=== PATIENT | male | born 1950 | race Two or more races ===

== ENCOUNTER 2020-05-02 22:01 | Inpatient (IN) | payer OTHER, MEDICAID ==
[~2020-05-02] VITALS: Ht 167.6 cm; Wt 84.0 kg
[2020-05-03 00:02] LABS: Basophils # (auto) 0 10 ^3/uL (0-0.2); Basophils % (auto) 0.2 % (0.0-2.0); Eosinophils # (auto) 0 10 ^3/uL (0-0.8); Eosinophils % (auto) 0.1 % (0.0-7.0); Hematocrit 45.7 % (41.0-53.0); Hemoglobin 15.4 g/dL (13.5-17.5); Lymphocytes # (auto) 0.7 10 ^3/uL (0.4-5.4); Mean Corpuscular Hemoglobin 31.8 pg (28.0-32.0); Mean Corpuscular Hgb Conc. 33.6 g/dL (32.0-36.0); Mean Corpuscular Volume 94.6 fL (80.0-100.0); Monocytes # (auto) 0.3 10 ^3/uL (0-1.3); Monocytes % (auto) 6.6 % (0.0-12.0); Neutrophils # (auto) 3.2 10 ^3/uL (1.6-8.6); Neutrophils % (auto) 77.1 % (37.0-80.0); Nucleated Red Blood Cells % 0.2 %; Platelet Count (auto) 113 10^3/uL (140-450); Red Blood Cells 4.83 10^6/uL (4.5-5.90); Red Cell Distribution Width 13.6 % (11.8-14.3); White Blood Cell 4.2 10^3/uL (4.4-10.8)
[2020-05-03 00:18] LABS: Albumin 2.8 g/dL (3.4-5.0); Anion Gap 5 (5-15); BUN/Creatinine Ratio 7.1; Blood Urea Nitrogen 6 mg/dL (7-18); Calcium 7.5 mg/dL (8.5-10.1); Carbon Dioxide 27 mmol/L (21-32); Chloride 103 mmol/L (98-107); GFR African American 115 mL/min; GFR Non-African American 95 mL/min; Glucose 118 mg/dL (74-106); Potassium 4.3 mmol/L (3.5-5.1); Sodium 135 mmol/L (136-145)
[2020-05-03 00:23] LABS: Alanine Aminotransferase 52 U/L (16-61); Alkaline Phosphatase 106 U/L (45-117); Aspartate Aminotransferase 79 U/L (15-37); Bilirubin, Total 0.6 mg/dL (0.2-1.0); Total Protein 6.8 g/dL (6.4-8.2)
[2020-05-03 05:23] LABS: Urine Bacteria FEW /hpf (None Seen); Urine Blood Negative /uL (Negative); Urine Specific Gravity 1.009 (1.001-1.035); Urine WBC <1 /hpf (0 - 3)
[2020-05-03] MEDS ORDERED: methylPREDNISolone SOD SUCC 125 MG/2 ML VL IV ONE (05:30)
[2020-05-03] MEDS ORDERED: DOXYCYCLINE 100MG/250ML 250 ML IV ONE (05:30)
[2020-05-03] MEDS ORDERED: SODIUM CHLORIDE 0.9% 1,000 ML IV SCH (05:43)
[2020-05-03] MEDS ORDERED: ONDANSETRON HCL 4 MG/2 ML VIAL IV PRN (05:45)
[2020-05-03] MEDS ORDERED: MORPHINE SULF INJ 2 MG/ML SYRINGE 1ML IV PRN (05:45)
[2020-05-03] MEDS ORDERED: ACETAMINOPHEN 500 MG TAB PO PRN (05:45)
[2020-05-03] MEDS ORDERED: ACETAMINOPHEN 325 MG TAB PO PRN (05:45)
[2020-05-03] MEDS: ALBUTEROL SULF HFA 90MCG INH 200DOSE IN SCH ×3 (06:00→22:08)
[2020-05-03 08:57] LABS: Basophils # (auto) 0 10 ^3/uL (0-0.2); Basophils % (auto) 0.4 % (0.0-2.0); Eosinophils # (auto) 0 10 ^3/uL (0-0.8); Hematocrit 46.7 % (41.0-53.0); Hemoglobin 15.3 g/dL (13.5-17.5); Lymphocytes # (auto) 0.4 10 ^3/uL (0.4-5.4); Lymphocytes % (auto) 13.7 % (10.0-50.0); Mean Corpuscular Hemoglobin 31.5 pg (28.0-32.0); Mean Corpuscular Hgb Conc. 32.9 g/dL (32.0-36.0); Mean Corpuscular Volume 95.7 fL (80.0-100.0); Monocytes # (auto) 0.1 10 ^3/uL (0-1.3); Monocytes % (auto) 3.7 % (0.0-12.0); Neutrophils # (auto) 2.5 10 ^3/uL (1.6-8.6); Neutrophils % (auto) 82.2 % (37.0-80.0); Platelet Count (auto) 94 10^3/uL (140-450); Red Blood Cells 4.88 10^6/uL (4.5-5.90); Red Cell Distribution Width 13.4 % (11.8-14.3)
[2020-05-03 09:20] LABS: Potassium 4.4 mmol/L (3.5-5.1)
[2020-05-03 09:26] LABS: BUN/Creatinine Ratio 10.6; Calcium 7.7 mg/dL (8.5-10.1); Magnesium 2.2 mg/dL (1.6-2.6)
[2020-05-03] MEDS: ASCORBIC ACID 1,000 MG TAB PO SCH (10:00)
[2020-05-03] MEDS: cefTRIAXone 1GM/50ML D5W 50 ML IV SCH (10:00)
[2020-05-03] MEDS: ENOXAPARIN SOD 40 MG/0.4 ML SYRINGE SC SCH (10:00)
[2020-05-03] MEDS: ZINC SULFATE 220mg CAP or TAB PO SCH (10:00)
[2020-05-03] MEDS: CHOLECALCIFEROL (VITD3) 1,000UNIT=25mCg TAB PO SCH (10:00)
[2020-05-03 10:34] VITALS: BP 145/94
[2020-05-03] MEDS: DOXYCYCLINE 100 MG TAB/CAP PO SCH ×2 (12:30→21:39)
[2020-05-03] MEDS ORDERED: FUROSEMIDE 40 MG/4 ML VIAL IV ONE (14:00)
--- NOTE | 2020-05-03 14:28 | NUR ---
MS admit from [facility] admitted to tele/MS after SBAR received. Patient oriented to JENNIFER AC, primary RN, unit, room, bed, and unit policies regarding patient care and visiting hours. Patient is alert and awake, on room air, with even and unlabored respirations and no S/S of distress/SOB or pain. Bed is in lowest position, wheels locked, side rails up x2, and call light is within reach. Pt weighed by bed scale and encouraged to call if they need something. All questions and concerns addressed, patient verbalized understanding. Will continue to monitor q1h and PRN
--- NOTE | 2020-05-03 16:01 | NUR ---
Family called for an update Patient's daughter, Kenzie, called for an update. Password obtained. Update provided.
[2020-05-03 17:00] VITALS: BP 138/77
[2020-05-03 17:43] VITALS: BP 138/77
--- NOTE | 2020-05-03 17:55 | NUR ---
Rounds Patient awake and alert. No S/S of distress/SOB or pain. Will continue to monitor changes q1hr and PRN.
[2020-05-03] MEDS: FUROSEMIDE 40 MG/4 ML VIAL IV SCH (18:00)
--- NOTE | 2020-05-03 19:50 | NUR ---
Opening Shift Note Assumed care of patient, awake and alert oriented x4. No S/S of distress/SOB or pain noted. Instructed on POC and to call for assist PRN. Bed is in lowest locked position with bed rails up x2 and call light is within reach of the patient.
[2020-05-03] MEDS: POTASSIUM CHL 10 Meq TABLET PO SCH (21:39)
[2020-05-03 22:00] VITALS: BP 142/79
[2020-05-03] MEDS ORDERED: DexAMETHasone 4 MG TAB PO SCH (22:00)
[2020-05-03] MEDS: BUDESONIDE (INHALATION) 180 MCG IH IN SCH (22:08)
[2020-05-04 05:17] VITALS: BP 138/78
[2020-05-04] MEDS: FUROSEMIDE 40 MG/4 ML VIAL IV SCH ×2 (05:30→17:40)
--- NOTE | 2020-05-04 07:28 | NUR ---
Opening Shift Note Assumed care of patient, pt sleeping quietly in bed with even and unlabored respirations. Pt is on 3 L oxymizer with No S/S of distress/SOB or pain. Bed is in lowest locked position, side rails up x2 and call light is within reach. Will continue to monitor for changes Q1hr and PRN. Addendum: 05/04/20 at 1832 by JENNIFER AC RN pt is actually on 3 L NC not Oxymizer
[2020-05-04 08:22] LABS: Basophils # (auto) 0 10 ^3/uL (0-0.2); Basophils % (auto) 0.2 % (0.0-2.0); Eosinophils # (auto) 0 10 ^3/uL (0-0.8); Hematocrit 46.3 % (41.0-53.0); Hemoglobin 15.2 g/dL (13.5-17.5); Lymphocytes # (auto) 0.4 10 ^3/uL (0.4-5.4); Lymphocytes % (auto) 4.9 % (10.0-50.0); Mean Corpuscular Hemoglobin 30.9 pg (28.0-32.0); Mean Corpuscular Hgb Conc. 32.9 g/dL (32.0-36.0); Monocytes # (auto) 0.4 10 ^3/uL (0-1.3); Monocytes % (auto) 4.7 % (0.0-12.0); Neutrophils # (auto) 6.9 10 ^3/uL (1.6-8.6); Neutrophils % (auto) 90.2 % (37.0-80.0); Platelet Count (auto) 140 10^3/uL (140-450); Red Blood Cells 4.93 10^6/uL (4.5-5.90); Red Cell Distribution Width 13.8 % (11.8-14.3); White Blood Cell 7.7 10^3/uL (4.4-10.8)
[2020-05-04 08:57] LABS: Potassium 3.8 mmol/L (3.5-5.1)
[2020-05-04 09:00] VITALS: BP 115/59
[2020-05-04 09:02] LABS: Albumin 2.6 g/dL (3.4-5.0); BUN/Creatinine Ratio 19.1; Calcium 7.9 mg/dL (8.5-10.1)
[2020-05-04 09:12] LABS: Bilirubin, Total 0.6 mg/dL (0.2-1.0); Total Protein 6.9 g/dL (6.4-8.2)
[2020-05-04] MEDS: ALBUTEROL SULF HFA 90MCG INH 200DOSE IN SCH ×3 (09:17→23:56)
[2020-05-04] MEDS: BUDESONIDE (INHALATION) 180 MCG IH IN SCH ×2 (10:00→23:56)
[2020-05-04] MEDS: POTASSIUM CHL 10 Meq TABLET PO SCH (10:00)
[2020-05-04] MEDS: CHOLECALCIFEROL (VITD3) 1,000UNIT=25mCg TAB PO SCH (11:30)
[2020-05-04] MEDS: ENOXAPARIN SOD 40 MG/0.4 ML SYRINGE SC SCH (11:30)
[2020-05-04] MEDS: DOXYCYCLINE 100 MG TAB/CAP PO SCH ×2 (11:30→22:06)
[2020-05-04] MEDS: cefTRIAXone 1GM/50ML D5W 50 ML IV SCH (11:30)
[2020-05-04] MEDS: POTASSIUM CHL 20 Meq TABLET PO SCH ×2 (11:30→22:06)
[2020-05-04] MEDS: ZINC SULFATE 220mg CAP or TAB PO SCH (11:30)
[2020-05-04] MEDS: ASCORBIC ACID 1,000 MG TAB PO SCH (11:30)
[2020-05-04] MEDS: DexAMETHasone SOD PHOS 10MG/1ML VIAL INJ IV SCH (11:30)
--- NOTE | 2020-05-04 12:20 | NUR ---
Rounds Patient awake and alert sitting up in bed. No S/S of distress/SOB or pain at this time. Will continue to monitor changes q1hr and PRN.
[2020-05-04 13:00] VITALS: BP 119/70
--- NOTE | 2020-05-04 14:20 | NUR ---
Oxygen titrated down Pt titrated down to 2 L NC as per MD orders. Pt tolerating well, o2 saturation is 93%. Patient educated to call if any symptoms of respiratory distress occur. Patient verbalized understanding. Will continue to monitor q1h and prn. Addendum: 05/04/20 at 1832 by JENNIFER AC RN wrong patient.
[2020-05-04] MEDS ORDERED: LORATADINE 10 MG TAB PO ONE (14:45)
[2020-05-04] MEDS ORDERED: LACTULOSE 20Gm/30ML SOLN PO ONE (14:45)
--- NOTE | 2020-05-04 15:30 | NUR ---
DR. BAZZI AT BEDSIDE DR. BAZZI AT BEDSIDE. PT C/O FEELING FULL, AND DIFFICULTY USING THE RESTROOM AND HAVING ALLERGIES. NEW ORDERS RECEIVED. WILL CONTINUE TO MONITOR Q1H AND PRN.
[2020-05-04 17:00] VITALS: BP 121/67
[2020-05-04] MEDS ORDERED: FUROSEMIDE 40 MG/4 ML VIAL IV SCH (18:00)
--- NOTE | 2020-05-04 18:45 | NUR ---
SPOKE WITH FAMILY MEMBER ALBINA VARMA ON THE PHONE TO PROVIDE AN UPDATE. SPOKE WITH FAMILY MEMBER TRINIDAD OVER THE PHONE. uPDATE PROVIDED AND INFORMED OF POC. FAMILY VERBALIZED UNDERSTANDING.
--- NOTE | 2020-05-04 20:20 | NUR ---
open note assumed care of pt upon entering room pt awake, alert and oriented x4 on 5L nc no distress noted or expressed. pt oriented to this nurse and updated on plan of care. pt reports he hasnt been able to have a bowel movement for a couple of days and feels as though he needs to go. this nurse to administer meds per MD and MAR. pt bed locked, low and 2x rails up. no further complaints. this nurse to round q1hr and prn. pt encouraged to call as needed.
[2020-05-04 22:00] VITALS: BP 123/71
[2020-05-04] MEDS: DOCUSATE SOD 100 MG CAP PO PRN (22:09)
[2020-05-05] MEDS: FUROSEMIDE 40 MG/4 ML VIAL IV SCH ×2 (06:21→17:31)
[2020-05-05 08:52] VITALS: BP 115/65
[2020-05-05] MEDS: BUDESONIDE (INHALATION) 180 MCG IH IN SCH ×2 (08:56→22:26)
[2020-05-05] MEDS: ALBUTEROL SULF HFA 90MCG INH 200DOSE IN SCH ×3 (08:56→22:26)
[2020-05-05] MEDS: cefTRIAXone 1GM/50ML D5W 50 ML IV SCH (10:23)
[2020-05-05] MEDS: ZINC SULFATE 220mg CAP or TAB PO SCH (10:23)
[2020-05-05] MEDS: DOXYCYCLINE 100 MG TAB/CAP PO SCH ×2 (10:23→22:26)
[2020-05-05] MEDS: DexAMETHasone SOD PHOS 10MG/1ML VIAL INJ IV SCH (10:23)
[2020-05-05] MEDS: POTASSIUM CHL 20 Meq TABLET PO SCH ×2 (10:23→22:26)
[2020-05-05] MEDS: ENOXAPARIN SOD 40 MG/0.4 ML SYRINGE SC SCH (10:24)
[2020-05-05] MEDS: ASCORBIC ACID 1,000 MG TAB PO SCH (10:24)
[2020-05-05] MEDS: CHOLECALCIFEROL (VITD3) 1,000UNIT=25mCg TAB PO SCH (10:24)
[2020-05-05 13:00] VITALS: BP 125/64
--- NOTE | 2020-05-05 14:00 | NUR ---
Dr nicolas at bedside to see patient and discuss treatment options and plan of care
[2020-05-05] MEDS ORDERED: PANTOPRAZOLE 40 MG TAB PO ONE (16:30)
[2020-05-05 17:12] VITALS: BP 126/64
--- NOTE | 2020-05-05 18:10 | NUR ---
Patient reading consent for manuel.
--- NOTE | 2020-05-05 20:00 | NUR ---
open note assumed care of pt upon entering room pt awake alert and oriented x4. pt on 6L oxymizer no distress noted or expressed. pt denies any pain. pt read over information and signed consent for remdesivir. pt updated on plan of care. pt bed locked low and 2x rails up. pt call light in reach, this nurse to round q1hr and prn. pt encouraged to call as needed.
[2020-05-05] MEDS: diphenhdrAMINE HCL 50 MG/1 ML VL IV SCH (20:16)
[2020-05-05] MEDS: methylPREDNISolone SOD SUCC 40 MG/ML VL IV SCH (20:16)
[2020-05-05] MEDS: ACETAMINOPHEN 650 mg PER 20 mL UD PO SCH (20:17)
[2020-05-05] MEDS: DOCUSATE SOD 100 MG CAP PO PRN (20:25)
[2020-05-05] MEDS: TOCILIZUMAB 400 MG in SODIUM CHL 0.9% 80 ML IV SCH (20:50)
[2020-05-05] MEDS ORDERED: REMDESIVIR 200 MG in NS 210ml LOADING DOSE ADULT IV ONE (22:00)
[2020-05-05 22:21] VITALS: BP 121/74
[2020-05-05] MEDS: PANTOPRAZOLE 40 MG TAB PO SCH (22:26)
[2020-05-06] VITALS (9 sets, daily range): BP systolic 131–140; BP diastolic 68–79
[2020-05-06 06:31] LABS: Albumin 2.4 g/dL (3.4-5.0); Calcium 7.6 mg/dL (8.5-10.1); Potassium 4.3 mmol/L (3.5-5.1)
[2020-05-06] MEDS: FUROSEMIDE 40 MG/4 ML VIAL IV SCH ×2 (06:32→17:27)
[2020-05-06 06:35] LABS: BUN/Creatinine Ratio 19.1; Bilirubin, Total 0.5 mg/dL (0.2-1.0); Total Protein 6.4 g/dL (6.4-8.2)
[2020-05-06] MEDS: ALBUTEROL SULF HFA 90MCG INH 200DOSE IN SCH ×3 (07:56→23:27)
[2020-05-06] MEDS: BUDESONIDE (INHALATION) 180 MCG IH IN SCH ×2 (07:56→23:27)
[2020-05-06] MEDS: methylPREDNISolone SOD SUCC 40 MG/ML VL IV SCH (08:52)
[2020-05-06] MEDS: diphenhdrAMINE HCL 50 MG/1 ML VL IV SCH (08:52)
[2020-05-06] MEDS: ACETAMINOPHEN 650 mg PER 20 mL UD PO SCH (08:53)
[2020-05-06] MEDS: TOCILIZUMAB 400 MG in SODIUM CHL 0.9% 80 ML IV SCH (09:21)
[2020-05-06] MEDS: PANTOPRAZOLE 40 MG TAB PO SCH ×2 (09:55→22:22)
[2020-05-06] MEDS: ASCORBIC ACID 1,000 MG TAB PO SCH (09:55)
[2020-05-06] MEDS: POTASSIUM CHL 20 Meq TABLET PO SCH ×2 (09:55→22:22)
[2020-05-06] MEDS: DOXYCYCLINE 100 MG TAB/CAP PO SCH ×2 (09:55→22:22)
[2020-05-06] MEDS: cefTRIAXone 1GM/50ML D5W 50 ML IV SCH (09:55)
[2020-05-06] MEDS: ZINC SULFATE 220mg CAP or TAB PO SCH (09:55)
[2020-05-06] MEDS: DexAMETHasone SOD PHOS 10MG/1ML VIAL INJ IV SCH (09:55)
[2020-05-06] MEDS: CHOLECALCIFEROL (VITD3) 1,000UNIT=25mCg TAB PO SCH (09:56)
[2020-05-06] MEDS: ENOXAPARIN SOD 40 MG/0.4 ML SYRINGE SC SCH (09:56)
--- NOTE | 2020-05-06 12:30 | NUR ---
DR BAZZI BEDSIDE WITH PATIENT
--- NOTE | 2020-05-06 14:28 | NUR ---
Nutrition Assessment Notes Please refer to link for full assessment notes. Est Energy needs: 0407-3642 kcals (17-20 kcal/kgBW) Est Protein needs: 91-100 gms/day (1.0-1.1 gm/kgBW) Will continue to monitor and reassess prn. Addendum: 05/06/20 at [address] Amended: Links added.
[2020-05-06 14:39] LABS: CRP High Sensitivity 1.85 mg/dL (< 0.3)
--- NOTE | 2020-05-06 16:03 | NUR ---
assessment Patient is a 70 year old male who is Guatemalan speaking. Sergo translated. Patient is Covid positive. Prior to admission patient lived home with his family and was independent. Patient has no DME and no oxygen prior to admission. Per patient he will return home with family on discharge. Patients PCP is Dr Washington. Patient is on 10L Oxymizer today. I will continue to monitor and follow up as appropriate for any oxygen needs. Patients discharge needs to be determined closer to discharge. Addendum: 05/06/20 at 1606 by Katherine LEYVA Amended: Links added.
--- NOTE | 2020-05-06 20:43 | NUR ---
SPOKE WITH PHARMACY, THEY WILL HAVE TECH BRING UP PATIENTS REMDESIIVIR FOR 2200 ADMINISTRATION.
[2020-05-06] MEDS ORDERED: REMDESIVIR 100mg in NS 230ml DAILYx4DAYS (NO VENT) IV SCH (22:00)
--- NOTE | 2020-05-06 22:48 | NUR ---
REMDESIVIR RUNNING PATIENT SHOWS NO S/S DISTRESS VITALS STABLE. WILL CONTINUE TO MONITOR
--- NOTE | 2020-05-06 23:45 | NUR ---
REMDESIVIR COMPLETE. PATIENT TOLERATED WELL, NO S/S DISTRESS NOTED. VITALS STABLE. WILL CONTINUE TO MONITOR.
[2020-05-07] MEDS: HYDROcodone-ACET 5/325MG TAB PO PRN (00:07)
[2020-05-07 05:53] VITALS: BP 138/75
[2020-05-07] MEDS: FUROSEMIDE 40 MG/4 ML VIAL IV SCH ×2 (05:57→17:35)
[2020-05-07] MEDS: ALBUTEROL SULF HFA 90MCG INH 200DOSE IN SCH ×3 (07:51→22:20)
[2020-05-07] MEDS: BUDESONIDE (INHALATION) 180 MCG IH IN SCH ×2 (07:51→22:20)
[2020-05-07 08:00] VITALS: BP 132/75
[2020-05-07 09:00] VITALS: BP 134/77
[2020-05-07 09:31] LABS: Basophils # (auto) 0 10 ^3/uL (0-0.2); Basophils % (auto) 0.2 % (0.0-2.0); Eosinophils # (auto) 0 10 ^3/uL (0-0.8); Hematocrit 48.1 % (41.0-53.0); Hemoglobin 16.3 g/dL (13.5-17.5); Lymphocytes # (auto) 0.9 10 ^3/uL (0.4-5.4); Lymphocytes % (auto) 11.2 % (10.0-50.0); Mean Corpuscular Hemoglobin 31.5 pg (28.0-32.0); Mean Corpuscular Hgb Conc. 33.9 g/dL (32.0-36.0); Mean Corpuscular Volume 93.1 fL (80.0-100.0); Monocytes # (auto) 0.4 10 ^3/uL (0-1.3); Monocytes % (auto) 4.9 % (0.0-12.0); Neutrophils # (auto) 6.7 10 ^3/uL (1.6-8.6); Neutrophils % (auto) 83.7 % (37.0-80.0); Nucleated Red Blood Cells % 0.2 %; Platelet Count (auto) 212 10^3/uL (140-450); Red Blood Cells 5.16 10^6/uL (4.5-5.90); Red Cell Distribution Width 13.8 % (11.8-14.3)
[2020-05-07 09:49] LABS: Albumin 2.8 g/dL (3.4-5.0); Calcium 7.9 mg/dL (8.5-10.1); Potassium 3.8 mmol/L (3.5-5.1)
[2020-05-07 09:54] LABS: BUN/Creatinine Ratio 26.3; Bilirubin, Total 0.7 mg/dL (0.2-1.0)
[2020-05-07] MEDS: DexAMETHasone SOD PHOS 10MG/1ML VIAL INJ IV SCH (09:54)
[2020-05-07] MEDS: ZINC SULFATE 220mg CAP or TAB PO SCH (09:54)
[2020-05-07] MEDS: POTASSIUM CHL 20 Meq TABLET PO SCH ×2 (09:54→22:49)
[2020-05-07] MEDS: cefTRIAXone 1GM/50ML D5W 50 ML IV SCH (09:54)
[2020-05-07] MEDS: PANTOPRAZOLE 40 MG TAB PO SCH ×2 (09:55→22:49)
[2020-05-07] MEDS: ASCORBIC ACID 1,000 MG TAB PO SCH (09:55)
[2020-05-07] MEDS: CHOLECALCIFEROL (VITD3) 1,000UNIT=25mCg TAB PO SCH (09:55)
[2020-05-07] MEDS: DOXYCYCLINE 100 MG TAB/CAP PO SCH ×2 (09:55→22:49)
[2020-05-07] MEDS: ENOXAPARIN SOD 40 MG/0.4 ML SYRINGE SC SCH (09:56)
[2020-05-07 13:00] VITALS: BP 131/69
[2020-05-07 17:00] VITALS: BP 119/98
[2020-05-07] MEDS: REMDESIVIR 100mg in NS 230ml DAILYx4DAYS (NO VENT) IV SCH (20:45)
--- NOTE | 2020-05-07 20:45 | NUR ---
Ordered Remdesivir started at this time. Temperature 97.8 degrees Farenheit orally, 56 HR, 16 RR, 125/86 mm Hg, 90% pulse oxygenation. No s/s of distress. Will continue to monitor.
--- NOTE | 2020-05-07 21:00 | NUR ---
Ordered Remdesivir continuing to infuse. Temperature 98.0 degrees Fahrenheit orally, 57 HR, 20 RR, 121/77 mm Hg, 91% pulse oxygenation. No s/s of distress. Will continue to monitor.
--- NOTE | 2020-05-07 21:45 | NUR ---
Ordered Remdesivir finished infusing at this time. Temperature 97.9 degrees Fahrenheit orally, 55 HR, 18 RR, 121/77 mm Hg, 94% pulse oxygenation. No s/s of distress. Will continue to monitor.
[2020-05-07 22:00] VITALS: BP 121/77
[2020-05-08 05:00] VITALS: BP 120/76
[2020-05-08] MEDS: FUROSEMIDE 40 MG/4 ML VIAL IV SCH ×2 (06:24→18:27)
--- NOTE | 2020-05-08 06:42 | NUR ---
Closing Note Patient lying in bed, awake and alert. Bed in lowest locked position, call light within reach. Pulse oxygenation reassessed, at 91% on 12 liters via Oxymizer. No s/s of distress. Will endorse care to dayshift RN.
[2020-05-08] MEDS: BUDESONIDE (INHALATION) 180 MCG IH IN SCH ×2 (06:56→20:01)
[2020-05-08] MEDS: ALBUTEROL SULF HFA 90MCG INH 200DOSE IN SCH ×3 (06:56→20:01)
--- NOTE | 2020-05-08 07:40 | NUR ---
Opening Note Received report from weight shifter RN. Patient is resting in bed, easy to wake by calling name. Patient is on 15L Oxymizer. Patient denies pain at this time. Reviewed plan of care with patient, patient verbalized understanding. Bed in low and locked position, call light within reach. Will continue to monitor Q1 hour and PRN.
[2020-05-08 09:17] VITALS: BP 112/68
[2020-05-08] MEDS: cefTRIAXone 1GM/50ML D5W 50 ML IV SCH (09:25)
[2020-05-08] MEDS: POTASSIUM CHL 20 Meq TABLET PO SCH ×2 (09:26→22:45)
[2020-05-08] MEDS: DexAMETHasone SOD PHOS 10MG/1ML VIAL INJ IV SCH (09:26)
[2020-05-08] MEDS: DOXYCYCLINE 100 MG TAB/CAP PO SCH (09:26)
[2020-05-08] MEDS: ASCORBIC ACID 1,000 MG TAB PO SCH (09:26)
[2020-05-08] MEDS: ENOXAPARIN SOD 40 MG/0.4 ML SYRINGE SC SCH (09:26)
[2020-05-08] MEDS: ZINC SULFATE 220mg CAP or TAB PO SCH (09:26)
[2020-05-08] MEDS: PANTOPRAZOLE 40 MG TAB PO SCH ×2 (09:26→22:46)
[2020-05-08] MEDS: CHOLECALCIFEROL (VITD3) 1,000UNIT=25mCg TAB PO SCH (09:27)
[2020-05-08 13:00] VITALS: BP 148/70
--- NOTE | 2020-05-08 13:05 | NUR ---
Ultra sound tech at bedside
[2020-05-08 17:12] VITALS: BP 121/76
[2020-05-08] MEDS: DOCUSATE SOD 100 MG CAP PO PRN (18:27)
--- NOTE | 2020-05-08 19:07 | NUR ---
Closing Note Report given to restaurant shift leader RN. No signs or symptoms of distress noted at this time.
[2020-05-08] MEDS: REMDESIVIR 100mg in NS 230ml DAILYx4DAYS (NO VENT) IV SCH (20:30)
--- NOTE | 2020-05-08 20:30 | NUR ---
Ordered Remdesivir started at this time. Temperature 98.3 degrees Fahrenheit orally, 61 HR, 18 RR, 124/76 mm Hg, 91% pulse oxygenation. No s/s of distress. Will continue to monitor.
--- NOTE | 2020-05-08 20:45 | NUR ---
Ordered Remdesivir continuing to infuse. Temperature 97.7 degrees Fahrenheit orally, 59 HR, 18 RR, 124/76 mm Hg, 93% pulse oxygenation. No s/s of distress. Will continue to monitor.
--- NOTE | 2020-05-08 21:30 | NUR ---
Ordered Remdesivir finished infusing at this time. Temperature 97.6 degrees Fahrenheit orally, 61 HR, 19RR, 116/72 mm Hg, 95% pulse oxygenation. No s/s of distress. Will continue to monitor.
[2020-05-08 22:00] VITALS: BP_SYST 116; BP_SYST 124; BP_DIAS 72; BP_DIAS 76
[2020-05-09 05:00] VITALS: BP 126/76
[2020-05-09] MEDS: FUROSEMIDE 40 MG/4 ML VIAL IV SCH (06:06)
[2020-05-09 06:13] LABS: Potassium 4.9 mmol/L (3.5-5.1)
[2020-05-09 06:21] LABS: Albumin 2.8 g/dL (3.4-5.0); BUN/Creatinine Ratio 23.5; Bilirubin, Total 0.8 mg/dL (0.2-1.0); Calcium 8.1 mg/dL (8.5-10.1); Total Protein 7.1 g/dL (6.4-8.2)
--- NOTE | 2020-05-09 06:47 | NUR ---
Closing Note Patient lying in bed, awake and alert. Bed in lowest locked position, side rails up x2, call light within reach. No s/s of distress. Will endorse care to dayshift RN.
[2020-05-09] MEDS: ALBUTEROL SULF HFA 90MCG INH 200DOSE IN SCH ×3 (07:13→22:14)
[2020-05-09] MEDS: BUDESONIDE (INHALATION) 180 MCG IH IN SCH ×2 (07:13→22:15)
[2020-05-09] MEDS ORDERED: SODIUM CHLORIDE 0.9% 500 ML IV ONE (07:45)
[2020-05-09] MEDS ORDERED: SODIUM CHLORIDE 0.9% 1,000 ML IV ONE (07:45)
[2020-05-09 08:47] VITALS: BP 129/75
[2020-05-09] MEDS ORDERED: DIPH50CA31 OR (09:42)
[2020-05-09] MEDS: CHOLECALCIFEROL (VITD3) 1,000UNIT=25mCg TAB PO SCH (11:29)
[2020-05-09] MEDS: ZINC SULFATE 220mg CAP or TAB PO SCH (11:29)
[2020-05-09] MEDS: DexAMETHasone SOD PHOS 10MG/1ML VIAL INJ IV SCH (11:29)
[2020-05-09] MEDS: PANTOPRAZOLE 40 MG TAB PO SCH ×2 (11:29→21:45)
[2020-05-09] MEDS: cefTRIAXone 1GM/50ML D5W 50 ML IV SCH (11:29)
[2020-05-09] MEDS: ASCORBIC ACID 1,000 MG TAB PO SCH (11:29)
[2020-05-09] MEDS: ENOXAPARIN SOD 40 MG/0.4 ML SYRINGE SC SCH (11:30)
--- NOTE | 2020-05-09 12:20 | NUR ---
Nutrition Followup Note Wt 91.1 kg Pt`s COVID +ve unable to talk to pt as in isolation. pt with no distress noted currently on regular diet with adequate PO fo 100% x 2 per RN doc Est Energy needs: 8703-4296 kcals (17-20 kcal/kgBW). Est Protein needs: 91-100 gms/day (1.0-1.1 gm/kgBW). Will continue to monitor and reassess prn. Labs: BUN 321 H, CREAT 1.32 H GLU 124 H BM: pt with 1 BM today per RN note Skin: BS 20 low risk, full details in landcare facilitator note PES: 1) Obesity aeb 141% IBW and BMI of 32.4 kg/m2 r/t energy intake in excess of energy needs 2) Altered nutrition related lab values aeb hyperglycemia, hypocalcemia, smod hypoalbuminemia r/t current medical condition Comments: Will continue to monitor PO intake, skin status, pertinent labs and weight trends. Will f/u in 3-5 days. Rec: 1) Continue to closely monitor pt PO intake to meet at least 75% of meals. 2) Continue current plan of care
[2020-05-09 12:59] VITALS: BP 116/76
[2020-05-09] MEDS: ALUM & MAG HYDROX-SIMETH LIQ(MAALOX) 30 ML PO PRN ×2 (14:45→23:42)
[2020-05-09 16:17] VITALS: BP 116/76
[2020-05-09 17:15] VITALS: BP 117/73
[2020-05-09] MEDS ORDERED: diphenhdrAMINE HCL 25 MG CAP PO PRN (17:45)
[2020-05-09] MEDS: REMDESIVIR 100mg in NS 230ml DAILYx4DAYS (NO VENT) IV SCH (21:45)
--- NOTE | 2020-05-09 21:45 | NUR ---
Ordered Remdesivir started at this time. Temperature 98.0 degrees Fahrenheit orally, 58 HR, 18 RR, 135/84 mm Hg, 90% pulse oxygenation. No s/s of distress. Will continue to monitor.
--- NOTE | 2020-05-09 22:00 | NUR ---
Ordered Remdesivir continuing to infuse. Temperature 98.0 degrees Fahrenheit orally, 63 HR, 17 RR, 130/79 mm Hg, 95% pulse oxygenation. No s/s of distress. Will continue to monitor.
--- NOTE | 2020-05-09 22:22 | NUR ---
Patient decreased to 12 liters via Oxymizer by Respiratory Therapist. Patient's oxygen saturation 86% - 92% while speaking, placed on 15 liters via non rebreather mask at this time. Oxygen saturation maintaining 90% - 94%. Respirations even and unlabored, no tachypnea noted. No s/s of distress. Will continue to monitor.
--- NOTE | 2020-05-09 22:45 | NUR ---
Ordered Remdesivir finished infusing at this time. Temperature 98.7 degrees Fahrenheit orally, 64 HR, 18 RR, 125/73 mm Hg, 90% pulse oxygenation. No s/s of distress. Will continue to monitor.
[2020-05-10 05:00] VITALS: BP_SYST 128; BP_SYST 132; BP_DIAS 72; BP_DIAS 87
[2020-05-10 06:28] LABS: Basophils # (auto) 0 10 ^3/uL (0-0.2); Eosinophils # (auto) 0.2 10 ^3/uL (0-0.8); Nucleated Red Blood Cells % 0.2 %
[2020-05-10] MEDS: ALBUTEROL SULF HFA 90MCG INH 200DOSE IN SCH ×3 (06:30→21:53)
[2020-05-10 06:31] LABS: Basophils % (auto) 0.1 % (0.0-2.0); Eosinophils % (auto) 1.8 % (0.0-7.0); Hematocrit 52.8 % (41.0-53.0); Hemoglobin 17.8 g/dL (13.5-17.5); Lymphocytes # (auto) 0.8 10 ^3/uL (0.4-5.4); Lymphocytes % (auto) 8.6 % (10.0-50.0); Mean Corpuscular Hemoglobin 31.5 pg (28.0-32.0); Mean Corpuscular Hgb Conc. 33.7 g/dL (32.0-36.0); Mean Corpuscular Volume 93.6 fL (80.0-100.0); Monocytes # (auto) 0.3 10 ^3/uL (0-1.3); Monocytes % (auto) 3.1 % (0.0-12.0); Neutrophils # (auto) 8.2 10 ^3/uL (1.6-8.6); Neutrophils % (auto) 86.4 % (37.0-80.0); Platelet Count (auto) 252 10^3/uL (140-450); Red Blood Cells 5.64 10^6/uL (4.5-5.90); Red Cell Distribution Width 13.6 % (11.8-14.3); White Blood Cell 9.5 10^3/uL (4.4-10.8)
[2020-05-10] MEDS: BUDESONIDE (INHALATION) 180 MCG IH IN SCH ×2 (06:31→21:55)
[2020-05-10 06:45] LABS: Albumin 2.7 g/dL (3.4-5.0); Potassium 4.6 mmol/L (3.5-5.1)
[2020-05-10 06:48] LABS: BUN/Creatinine Ratio 27.3; Bilirubin, Total 0.8 mg/dL (0.2-1.0); Total Protein 6.7 g/dL (6.4-8.2)
--- NOTE | 2020-05-10 07:20 | NUR ---
Opening Shift Note Received report and assumed care of patient. Patient is awake and alert. No signs or symptoms of distress noted, patient currently denies pain. Instructed patient on plan of care and to call for assistance as needed. Will continue to monitor. Addendum: 05/11/20 at 0123 by ANDRE SOOD RN THIS NOTE IS AT THIS 19:20 05/10/20
[2020-05-10 08:00] VITALS: BP 118/83
[2020-05-10 09:00] VITALS: BP 118/83
[2020-05-10] MEDS: cefTRIAXone 1GM/50ML D5W 50 ML IV SCH (10:04)
[2020-05-10] MEDS: ZINC SULFATE 220mg CAP or TAB PO SCH (10:04)
[2020-05-10] MEDS: DexAMETHasone SOD PHOS 10MG/1ML VIAL INJ IV SCH (10:04)
[2020-05-10] MEDS: CHOLECALCIFEROL (VITD3) 1,000UNIT=25mCg TAB PO SCH (10:05)
[2020-05-10] MEDS: ASCORBIC ACID 1,000 MG TAB PO SCH (10:05)
[2020-05-10] MEDS: PANTOPRAZOLE 40 MG TAB PO SCH ×2 (10:05→22:11)
[2020-05-10] MEDS: ENOXAPARIN SOD 40 MG/0.4 ML SYRINGE SC SCH (10:05)
[2020-05-10] MEDS ORDERED: FUROSEMIDE 40 MG/4 ML VIAL IV ONE (10:45)
[2020-05-10 12:00] VITALS: BP 128/79
--- NOTE | 2020-05-10 16:30 | NUR ---
DR BAZZI ON UNIT
[2020-05-10 17:00] VITALS: BP 134/85
[2020-05-10 22:00] VITALS: BP 127/78
--- NOTE | 2020-05-10 22:00 | NUR ---
RT NOTE PT WAS SEEN BY RT FOR MDI TX. PT TOLERATES WELL VIA SPACER. PT RINSED MOUTH WITH WATER POST MDI TX. HR 68, RR16, BS CLEAR/DIMINISHED, POX 89% ON 15L NONREBREATHER. CONT ORDERED Addendum: 05/10/20 at 2241 by Marybel Vazquez RT Amended: Links added.
[2020-05-11 05:00] VITALS: BP 128/83
[2020-05-11] MEDS: ALBUTEROL SULF HFA 90MCG INH 200DOSE IN SCH ×3 (06:24→21:31)
[2020-05-11] MEDS: BUDESONIDE (INHALATION) 180 MCG IH IN SCH ×2 (06:24→21:31)
[2020-05-11 08:00] VITALS: BP 115/84
[2020-05-11 09:00] VITALS: BP 115/84
[2020-05-11] MEDS: DexAMETHasone SOD PHOS 10MG/1ML VIAL INJ IV SCH (09:45)
[2020-05-11] MEDS: FUROSEMIDE 40 MG/4 ML VIAL IV SCH (09:46)
[2020-05-11] MEDS: ZINC SULFATE 220mg CAP or TAB PO SCH (09:46)
[2020-05-11] MEDS: PANTOPRAZOLE 40 MG TAB PO SCH ×2 (09:46→21:42)
[2020-05-11] MEDS: CHOLECALCIFEROL (VITD3) 1,000UNIT=25mCg TAB PO SCH (09:46)
[2020-05-11] MEDS: ASCORBIC ACID 1,000 MG TAB PO SCH (09:46)
[2020-05-11] MEDS: ENOXAPARIN SOD 40 MG/0.4 ML SYRINGE SC SCH (09:47)
--- NOTE | 2020-05-11 11:45 | NUR ---
Dr Cleaning bedside with patient. Informed DrMatt of patients request for allergy medication. Dr Cleaning will place order
[2020-05-11 12:00] VITALS: BP 120/97
[2020-05-11] MEDS ORDERED: FLUTICASONE PROP NASAL SPR 0.05 % (50MCG) 16GM EACHNOSTRI ONE (14:00)
[2020-05-11] MEDS ORDERED: LORATADINE 10 MG TAB PO ONE (14:00)
[2020-05-11] MEDS: DOCUSATE SOD 100 MG CAP PO PRN (14:56)
[2020-05-11 16:48] VITALS: BP 123/75
--- NOTE | 2020-05-11 19:40 | NUR ---
Opening Shift Note Assumed care of patient, awake and alert. No S/S of distress/SOB or pain. Instructed on POC and to call for assist PRN. Bed in lowest locked position, call light within reach, side rails up x2. Will continue to monitor for changes Q1hr and PRN.
[2020-05-11] MEDS: FLUTICASONE PROP NASAL SPR 0.05 % (50MCG) 16GM EACHNOSTRI SCH (21:42)
[2020-05-11 21:50] VITALS: BP 121/86
[2020-05-12 05:23] VITALS: BP 120/87
[2020-05-12] MEDS: ALBUTEROL SULF HFA 90MCG INH 200DOSE IN SCH ×3 (06:48→22:18)
[2020-05-12] MEDS: BUDESONIDE (INHALATION) 180 MCG IH IN SCH ×2 (06:49→22:18)
[2020-05-12 09:42] VITALS: BP 140/83
[2020-05-12] MEDS: ZINC SULFATE 220mg CAP or TAB PO SCH (10:18)
[2020-05-12] MEDS: PANTOPRAZOLE 40 MG TAB PO SCH ×2 (10:18→21:53)
[2020-05-12] MEDS: ASCORBIC ACID 1,000 MG TAB PO SCH (10:18)
[2020-05-12] MEDS: LORATADINE 10 MG TAB PO SCH (10:18)
[2020-05-12] MEDS: CHOLECALCIFEROL (VITD3) 1,000UNIT=25mCg TAB PO SCH (10:18)
[2020-05-12] MEDS: ENOXAPARIN SOD 40 MG/0.4 ML SYRINGE SC SCH ×2 (10:19→21:53)
[2020-05-12] MEDS: FUROSEMIDE 40 MG/4 ML VIAL IV SCH (10:19)
[2020-05-12] MEDS: FLUTICASONE PROP NASAL SPR 0.05 % (50MCG) 16GM EACHNOSTRI SCH ×2 (10:20→21:53)
[2020-05-12 11:25] LABS: Eosinophils # (auto) 0.2 10 ^3/uL (0-0.8); Lymphocytes # (auto) 1.1 10 ^3/uL (0.4-5.4); Lymphocytes % (auto) 6.8 % (10.0-50.0)
[2020-05-12 11:27] LABS: Basophils # (auto) 0.1 10 ^3/uL (0-0.2); Basophils % (auto) 0.5 % (0.0-2.0); Eosinophils % (auto) 1.3 % (0.0-7.0); Hematocrit 53.4 % (41.0-53.0); Hemoglobin 18.1 g/dL (13.5-17.5); Mean Corpuscular Hemoglobin 31.5 pg (28.0-32.0); Mean Corpuscular Hgb Conc. 33.9 g/dL (32.0-36.0); Monocytes # (auto) 0.5 10 ^3/uL (0-1.3); Monocytes % (auto) 3.4 % (0.0-12.0); Neutrophils # (auto) 13.6 10 ^3/uL (1.6-8.6); Nucleated Red Blood Cells % 0.3 %; Platelet Count (auto) 226 10^3/uL (140-450); Red Blood Cells 5.74 10^6/uL (4.5-5.90); Red Cell Distribution Width 13.7 % (11.8-14.3); White Blood Cell 15.5 10^3/uL (4.4-10.8)
[2020-05-12 11:43] LABS: Albumin 2.9 g/dL (3.4-5.0); Calcium 8.5 mg/dL (8.5-10.1); Potassium 3.9 mmol/L (3.5-5.1)
[2020-05-12 11:46] LABS: BUN/Creatinine Ratio 28.2; Bilirubin, Total 0.9 mg/dL (0.2-1.0)
[2020-05-12 11:58] VITALS: BP 140/83
[2020-05-12 12:42] VITALS: BP 128/86
--- NOTE | 2020-05-12 14:17 | NUR ---
Nutrition Followup Note Wt 84.0 kg Unable to speak to pt d/t pt`s COVID +. Pt is currently on regular diet with fair PO intake aeb ave 67% x 3 per RN doc. Pt with no distress per RN doc. Will continue to monitor PO status, skin status, pertinent labs and weight trends. Will f/u in 3-5 days. Est Energy needs: 9394-4649 kcals (17-20 kcal/kgBW). Est Protein needs: 91-100 gms/day (1.0-1.1 gm/kgBW). Will continue to monitor and reassess prn. Labs: BUN 30 H, GLU 113 H, Ca 8.0 L. Alb 2.7 L BM: pt with 1 BM on 05/09 per RN note Skin: BS 20 low risk, full details in career technology teacher note PES: 1) Obesity aeb 141% IBW and BMI of 32.4 kg/m2 r/t energy intake in excess of energy needs 2) Altered nutrition related lab values aeb hyperglycemia, hypocalcemia, smod hypoalbuminemia r/t current medical condition Comments: Will continue to monitor PO intake, skin status, pertinent labs and weight trends. Will f/u in 3-5 days. Rec: 1) Continue to closely monitor pt PO intake to meet at least 75% of meals. 2) Continue current plan of care
[2020-05-12] MEDS ORDERED: DexAMETHasone 4 MG TAB PO ONE (15:15)
[2020-05-12] MEDS ORDERED: POTASSIUM CHL 10 Meq TABLET PO ONE (15:30)
[2020-05-12 16:59] VITALS: BP 118/72
[2020-05-12] MEDS: DOCUSATE SOD 100 MG CAP PO PRN (21:54)
[2020-05-12 22:00] VITALS: BP 117/71
[2020-05-13 05:00] VITALS: BP 109/68
[2020-05-13] MEDS: ALBUTEROL SULF HFA 90MCG INH 200DOSE IN SCH ×3 (07:37→23:51)
[2020-05-13] MEDS: BUDESONIDE (INHALATION) 180 MCG IH IN SCH ×2 (07:37→23:51)
[2020-05-13 09:27] VITALS: BP 132/80
[2020-05-13] MEDS ORDERED: DexAMETHasone 4 MG TAB PO SCH (10:00)
[2020-05-13] MEDS: CHOLECALCIFEROL (VITD3) 1,000UNIT=25mCg TAB PO SCH (10:07)
[2020-05-13] MEDS: ASCORBIC ACID 1,000 MG TAB PO SCH (10:07)
[2020-05-13] MEDS: FUROSEMIDE 20 MG TAB PO SCH (10:08)
[2020-05-13] MEDS: PANTOPRAZOLE 40 MG TAB PO SCH ×2 (10:08→23:38)
[2020-05-13] MEDS: POTASSIUM CHL 10 Meq TABLET PO SCH (10:08)
[2020-05-13] MEDS: LORATADINE 10 MG TAB PO SCH (10:09)
[2020-05-13] MEDS: ENOXAPARIN SOD 40 MG/0.4 ML SYRINGE SC SCH ×2 (10:10→23:39)
[2020-05-13] MEDS: FLUTICASONE PROP NASAL SPR 0.05 % (50MCG) 16GM EACHNOSTRI SCH ×2 (10:10→23:38)
[2020-05-13 12:27] VITALS: BP 122/78
[2020-05-13 17:00] VITALS: BP 108/68
[2020-05-13] MEDS: DOCUSATE SOD 100 MG CAP PO PRN (20:54)
[2020-05-13] MEDS: HYDROcodone-ACET 5/325MG TAB PO PRN (20:55)
[2020-05-13 22:00] VITALS: BP 97/69
[2020-05-14 04:49] VITALS: BP 111/72
[2020-05-14] MEDS: ALBUTEROL SULF HFA 90MCG INH 200DOSE IN SCH ×2 (06:29→14:17)
[2020-05-14] MEDS: BUDESONIDE (INHALATION) 180 MCG IH IN SCH (06:31)
[2020-05-14 06:48] LABS: Basophils # (auto) 0 10 ^3/uL (0-0.2); Basophils % (auto) 0.2 % (0.0-2.0); Eosinophils # (auto) 0.1 10 ^3/uL (0-0.8); Eosinophils % (auto) 1.5 % (0.0-7.0); Hemoglobin 15.8 g/dL (13.5-17.5); Lymphocytes # (auto) 1.1 10 ^3/uL (0.4-5.4); Lymphocytes % (auto) 11.2 % (10.0-50.0); Mean Corpuscular Hemoglobin 31.3 pg (28.0-32.0); Mean Corpuscular Hgb Conc. 32.9 g/dL (32.0-36.0); Monocytes # (auto) 0.5 10 ^3/uL (0-1.3); Monocytes % (auto) 5.5 % (0.0-12.0); Neutrophils # (auto) 7.9 10 ^3/uL (1.6-8.6); Neutrophils % (auto) 81.6 % (37.0-80.0); Nucleated Red Blood Cells % 0.1 %; Platelet Count (auto) 138 10^3/uL (140-450); Red Blood Cells 5.05 10^6/uL (4.5-5.90); Red Cell Distribution Width 13.6 % (11.8-14.3); White Blood Cell 9.7 10^3/uL (4.4-10.8)
[2020-05-14 07:04] LABS: Albumin 2.5 g/dL (3.4-5.0); Calcium 7.8 mg/dL (8.5-10.1); Potassium 4.2 mmol/L (3.5-5.1)
[2020-05-14 07:07] LABS: BUN/Creatinine Ratio 28.1; Total Protein 5.8 g/dL (6.4-8.2)
[2020-05-14 08:00] VITALS: BP 111/68
[2020-05-14] MEDS: ASCORBIC ACID 1,000 MG TAB PO SCH (10:51)
[2020-05-14] MEDS: ENOXAPARIN SOD 40 MG/0.4 ML SYRINGE SC SCH (10:51)
[2020-05-14] MEDS: FLUTICASONE PROP NASAL SPR 0.05 % (50MCG) 16GM EACHNOSTRI SCH (10:52)
[2020-05-14] MEDS: POTASSIUM CHL 10 Meq TABLET PO SCH (10:52)
[2020-05-14] MEDS: PANTOPRAZOLE 40 MG TAB PO SCH (10:52)
[2020-05-14] MEDS: LORATADINE 10 MG TAB PO SCH (10:52)
[2020-05-14] MEDS: FUROSEMIDE 20 MG TAB PO SCH (10:52)
[2020-05-14] MEDS: CHOLECALCIFEROL (VITD3) 1,000UNIT=25mCg TAB PO SCH (10:52)
[2020-05-14] MEDS ORDERED: LIDOCAINE VISCOUS 2% 15ML UD MT ONE (11:15)
[2020-05-14] MEDS ORDERED: THROAT LOZENGES(CEPASTAT) MT PRN (11:15)
[2020-05-14] MEDS ORDERED: THROAT LOZENGES(CEPASTAT) MT ONE (11:15)
[2020-05-14] MEDS ORDERED: LIDOCAINE VISCOUS 2% 15ML UD MT PRN (11:15)
[2020-05-14 12:00] VITALS: BP 111/73
[2020-05-14] MEDS ORDERED: POTA-167 PO (14:00)
[2020-05-14] MEDS ORDERED: CHOL1000 PO (14:00)
[2020-05-14] MEDS ORDERED: FLUT50SP EACHNOSTRI (14:00)
[2020-05-14] MEDS ORDERED: AMOX500T86 PO (14:00)
[2020-05-14] MEDS ORDERED: ASCO10003 PO (14:00)
[2020-05-14] MEDS ORDERED: ALBUAER3 IN (14:00)
[2020-05-14] MEDS ORDERED: LORA-154 PO (14:00)
[2020-05-14] MEDS ORDERED: FUR20T PO (14:00)
[2020-05-14] MEDS ORDERED: ASPI81CH43 PO (14:00)
[2020-05-14] MEDS ORDERED: PANT40T PO (14:00)
--- NOTE | 2020-05-14 14:01 | NUR ---
D/C Planning Regarding social service consult for home oxygen at 6 l/min. Faxed clinical information to [facility] [place] and [facility]. Per Flori with [facility] [place] [phone] patient portable oxygen will be deliver to the front lobby between 15:00-17:30 and concentrate to home. Obtain authorization from [facility] [id number].
--- NOTE | 2020-05-14 17:00 | NUR ---
Patient home oxygen delivered to unit.
--- NOTE | 2020-05-14 17:40 | NUR ---
Discharge instructions given as ordered. Encourage to follow up with PMD as instructed. All questions and concerns addressed. Patient verbalized understanding. Medication reconciliation form completed and copy given to patient. IV removed with catheter intact, pressure dressing applied. Covid education given.Patient taken to vehicle via wheelchair with all personal belongings, home oxygen and prescribed medications in hands, accompanied by staff. Family member waiting in front lobby for transportation home. No distress noted at time of departure.
== END 2020-05-14 17:40 | disposition home or self-care (01) | DRG 871 ==
LOC: ER 22:01 → OVERFLOW 22:02 → EAST 05-03 14:29
PROVIDERS: ADMIT Hospitalist; ATTEND Internal Medicine
DX: A41.89 Other specified sepsis (principal); U07.1 COVID-19; J96.01 Acute respiratory failure with hypoxia; J12.89 Other viral pneumonia; E44.0 Moderate protein-calorie malnutrition; J01.00 Acute maxillary sinusitis, unspecified; I49.3 Ventricular premature depolarization; K29.70 Gastritis, unspecified, without bleeding; K21.9 Gastro-esophageal reflux disease without esophagitis; E78.5 Hyperlipidemia, unspecified; K76.0 Fatty (change of) liver, not elsewhere classified; R73.9 Hyperglycemia, unspecified; Z68.32 Body mass index [BMI] 32.0-32.9, adult
CPT/HCPCS: 36415; 71045; 76705; 80048; 80053; 80061; 81001; 82728; 83036; 83615; 83735; 83880; 84484; 85025; 86141; 87070; 87880; 93005; 94640; 96361; 96365; 96367; 96372; 96375; G0378; J0696; J1100; J2405

== ENCOUNTER 2020-05-26 12:52 | Inpatient (IN) | payer OTHER, MEDICAID ==
[~2020-05-26] VITALS: Ht 170.2 cm; Wt 60.0 kg
[~2020-05-26 12:52] MED LIST: ALBUAER3 IN; AMOX500T86 PO; ASCO10003 PO; ASPI81CH43 PO; CHOL1000 PO; DIPH50CA31 OR; FLUT50SP EACHNOSTRI; FUR20T PO; LORA-154 PO; PANT40T PO; POTA-167 PO
[2020-05-26] MEDS ORDERED: SODIUM CHLORIDE 0.9% 1,000 ML IV ONE (13:00)
[2020-05-26] MEDS ORDERED: ASCORBIC ACID 500 MG TAB PO ONE (13:45)
[2020-05-26] MEDS ORDERED: cefTRIAXone 1GM/50ML D5W 50 ML IV ONE (13:45)
[2020-05-26] MEDS ORDERED: DOXYCYCLINE 100MG/250ML 250 ML IV ONE (13:45)
[2020-05-26] MEDS ORDERED: ZINC SULFATE 220mg CAP or TAB PO ONE (13:45)
[2020-05-26 14:28] LABS: Basophils # (auto) 0 10 ^3/uL (0-0.2); Basophils % (auto) 0.6 % (0.0-2.0); Eosinophils # (auto) 0.4 10 ^3/uL (0-0.8); Eosinophils % (auto) 5.5 % (0.0-7.0); Hematocrit 44.5 % (41.0-53.0); Hemoglobin 14.9 g/dL (13.5-17.5); Lymphocytes # (auto) 1.1 10 ^3/uL (0.4-5.4); Lymphocytes % (auto) 13.5 % (10.0-50.0); Mean Corpuscular Hemoglobin 31.8 pg (28.0-32.0); Mean Corpuscular Hgb Conc. 33.5 g/dL (32.0-36.0); Mean Corpuscular Volume 94.9 fL (80.0-100.0); Monocytes # (auto) 0.8 10 ^3/uL (0-1.3); Monocytes % (auto) 9.8 % (0.0-12.0); Neutrophils # (auto) 5.6 10 ^3/uL (1.6-8.6); Neutrophils % (auto) 70.6 % (37.0-80.0); Nucleated Red Blood Cells % 0.1 %; Platelet Count (auto) 208 10^3/uL (140-450); Red Blood Cells 4.69 10^6/uL (4.5-5.90); Red Cell Distribution Width 14.7 % (11.8-14.3); White Blood Cell 7.9 10^3/uL (4.4-10.8)
[2020-05-26 14:43] LABS: Albumin 2.7 g/dL (3.4-5.0); Anion Gap 5 (5-15); Aspartate Aminotransferase 51 U/L (15-37); BUN/Creatinine Ratio 9.5; Blood Urea Nitrogen 7 mg/dL (7-18); Calcium 8.2 mg/dL (8.5-10.1); Carbon Dioxide 28 mmol/L (21-32); Chloride 105 mmol/L (98-107); GFR African American 135 mL/min; GFR Non-African American 112 mL/min; Glucose 101 mg/dL (74-106); Magnesium 2.2 mg/dL (1.6-2.6); Potassium 4.1 mmol/L (3.5-5.1); Sodium 138 mmol/L (136-145)
[2020-05-26 14:47] LABS: Alanine Aminotransferase 59 U/L (16-61); Alkaline Phosphatase 182 U/L (45-117); Bilirubin, Total 0.5 mg/dL (0.2-1.0); Total Protein 7.1 g/dL (6.4-8.2)
[2020-05-26] MEDS ORDERED: MORPHINE SULF INJ 2 MG/ML SYRINGE 1ML IV PRN (16:00)
[2020-05-26] MEDS ORDERED: AZITHROMYCIN 500MG/ 250ML 250 ML IV ONE (16:00)
[2020-05-26] MEDS ORDERED: NITROGLYCERIN 0.4 MG SL TAB SL PRN (16:00)
[2020-05-26] MEDS ORDERED: FUROSEMIDE 40 MG/4 ML VIAL IV ONE (16:00)
[2020-05-26 17:38] LABS: Urine Bacteria NONE SEEN /hpf (None Seen); Urine Blood Negative /uL (Negative); Urine Specific Gravity 1.005 (1.001-1.035); Urine WBC <1 /hpf (0 - 3)
[2020-05-26 19:33] VITALS: BP 139/81
--- NOTE | 2020-05-26 19:33 | NUR ---
Opening Shift Note Assumed care of patient from day shift rn , awake and alert. No S/S of distress/SOB or pain. Instructed on POC and to call for assist PRN, will continue to monitor for changes Q1hr and PRN. bed in low positon and call light within reach
[2020-05-26] MEDS: FUROSEMIDE 40 MG/4 ML VIAL IV SCH (20:14)
[2020-05-26 22:00] VITALS: BP 123/67
[2020-05-27] MEDS ORDERED: SOD CHL 0.45% 1,000 ML IV SCH (01:38)
[2020-05-27] MEDS ORDERED: ALUM & MAG HYDROX-SIMETH LIQ(MAALOX) 30 ML PO PRN (01:45)
[2020-05-27] MEDS ORDERED: MORPHINE SULF INJ 2 MG/ML SYRINGE 1ML IV PRN ×2 (01:45)
[2020-05-27] MEDS ORDERED: LORazepam 0.5 MG TAB PO PRN (01:45)
[2020-05-27] MEDS ORDERED: ONDANSETRON HCL 4 MG/2 ML VIAL IV PRN (01:45)
[2020-05-27] MEDS ORDERED: NITROGLYCERIN 0.4 MG SL TAB SL PRN (01:45)
[2020-05-27] MEDS ORDERED: HYDROcodone-ACET 5/325MG TAB PO PRN (01:45)
[2020-05-27] MEDS ORDERED: OMEP20TA85 PO (04:37)
[2020-05-27 05:00] VITALS: BP 119/76
[2020-05-27] MEDS ORDERED: ALBUTEROL SULF HFA 90MCG INH 200DOSE IN SCH (06:00)
[2020-05-27] MEDS: FUROSEMIDE 40 MG/4 ML VIAL IV SCH (06:17)
--- NOTE | 2020-05-27 06:26 | NUR ---
sent MRSA SWAB
[2020-05-27 06:57] LABS: Basophils # (auto) 0.1 10 ^3/uL (0-0.2); Basophils % (auto) 0.6 % (0.0-2.0); Eosinophils # (auto) 0.9 10 ^3/uL (0-0.8); Eosinophils % (auto) 9.4 % (0.0-7.0); Hematocrit 46.8 % (41.0-53.0); Hemoglobin 15.6 g/dL (13.5-17.5); Lymphocytes # (auto) 1.6 10 ^3/uL (0.4-5.4); Lymphocytes % (auto) 17.3 % (10.0-50.0); Mean Corpuscular Hemoglobin 31.5 pg (28.0-32.0); Mean Corpuscular Hgb Conc. 33.4 g/dL (32.0-36.0); Mean Corpuscular Volume 94.4 fL (80.0-100.0); Monocytes # (auto) 0.9 10 ^3/uL (0-1.3); Monocytes % (auto) 9.5 % (0.0-12.0); Neutrophils # (auto) 5.9 10 ^3/uL (1.6-8.6); Neutrophils % (auto) 63.2 % (37.0-80.0); Nucleated Red Blood Cells % 0.1 %; Platelet Count (auto) 229 10^3/uL (140-450); Red Blood Cells 4.96 10^6/uL (4.5-5.90); Red Cell Distribution Width 14.7 % (11.8-14.3); White Blood Cell 9.4 10^3/uL (4.4-10.8)
[2020-05-27 07:09] LABS: Albumin 2.7 g/dL (3.4-5.0); Anion Gap 4 (5-15); Blood Urea Nitrogen 10 mg/dL (7-18); Calcium 8.2 mg/dL (8.5-10.1); Carbon Dioxide 30 mmol/L (21-32); Chloride 103 mmol/L (98-107); Glucose 96 mg/dL (74-106); Magnesium 2.1 mg/dL (1.6-2.6); Potassium 4.2 mmol/L (3.5-5.1); Sodium 137 mmol/L (136-145)
[2020-05-27 07:15] LABS: INR 1.03 (0.9-1.15); Partial Thromboplastin Time 27.6 sec (23.0-31.2)
[2020-05-27 07:16] LABS: Alanine Aminotransferase 60 U/L (16-61); Alkaline Phosphatase 181 U/L (45-117); Aspartate Aminotransferase 54 U/L (15-37); BUN/Creatinine Ratio 12.5; Bilirubin, Total 0.7 mg/dL (0.2-1.0); GFR African American 124 mL/min; GFR Non-African American 102 mL/min; Phosphorus 3.4 mg/dL (2.5-4.90); Total Protein 6.9 g/dL (6.4-8.2)
[2020-05-27 08:00] VITALS: BP 119/76
--- NOTE | 2020-05-27 08:00 | NUR ---
ASSESSMENT NOTE PT IS ALERT ORIENTED X4, RESTING IN BED COMFORTABLY, ABLE TO SELF REPOSITION AND VERBALIS HI SDEMANDS, OXYGEN 6 L NC, NON PRODUCTIVE COUGH NOTED, PAIN 0/10, PT GET SHORTNESS ON EVERSION, CALL LIGHT WITHIN REACH
--- NOTE | 2020-05-27 08:25 | NUR ---
IV insertion IV access obtained, via clean sterile technique by inserting 22 gauge catheter at after attempt(s). IV secured properly. No trauma to site. Patient tolerated well. NOTE:
[2020-05-27] MEDS: ASPirin 81 mg TAB PO SCH (08:51)
[2020-05-27] MEDS: cefTRIAXone 1GM/50ML D5W 50 ML IV SCH (08:51)
[2020-05-27] MEDS: PANTOPRAZOLE 40 MG TAB PO SCH (08:52)
[2020-05-27] MEDS: ASCORBIC ACID 1,000 MG TAB PO SCH (08:52)
[2020-05-27] MEDS: CHOLECALCIFEROL (VITD3) 1,000UNIT=25mCg TAB PO SCH (08:52)
[2020-05-27 09:11] VITALS: BP 108/74
[2020-05-27] MEDS ORDERED: ENOXAPARIN SOD 40 MG/0.4 ML SYRINGE SC SCH (10:00)
[2020-05-27] MEDS: AZITHROMYCIN 500MG/ 250ML 250 ML IV SCH (10:10)
--- NOTE | 2020-05-27 10:20 | NUR ---
DR BAZZI CALLED TO FOLLOW UP OF PT WITH NEW ORDERS
--- NOTE | 2020-05-27 10:30 | NUR ---
INCENTIVE SPIROMETER EDUCATED PT HOW TO USE THE IS MACHINE, EXPLAIN WHY, PT VERBALIS UNDERSTANDING, DEMONSTRATED BACK
--- NOTE | 2020-05-27 10:57 | NUR ---
DR HUNTLEY AT BED SIDE FOLLOWING UP ON PT
--- NOTE | 2020-05-27 11:26 | NUR ---
IN HOUSE PATRIC Gomes SWAP SENT TO LAB
--- NOTE | 2020-05-27 11:34 | NUR ---
Consult Monitor pt wt and po intake, consider oral supplements if pt po intake is inadequate Est energy needs 5816-8536 kcal (23-25 kcal/kg BW 83.915kg) Est protein needs 67-84g (0.8-1g/kg BW 83.915kg) Will reassess prn. Addendum: 05/27/20 at [address] Amended: Links added.
--- NOTE | 2020-05-27 13:57 | NUR ---
HUMIDIFIER INITIATED WITH THE CURRENT OXYGEN
[2020-05-27] MEDS: guaiFENesin-DM 100/10mg/5ml SYR PO PRN ×2 (13:58→23:07)
[2020-05-27 15:00] LABS: Free T3 2.59 pg/mL (2.3-4.2); Free T4 (Free Thyroxine) 0.99 ng/dL (0.89-1.76)
--- NOTE | 2020-05-27 18:50 | NUR ---
PT CONTINUE STABLE, CONTINUE MONITORING
--- NOTE | 2020-05-27 19:36 | NUR ---
Received patient from [facility] after receiving report form SOFIA Arzate. Patient on O2 at 6 L, bed in lowest locked position x2 side rails, call light within reach.
--- NOTE | 2020-05-27 19:53 | NUR ---
TRANSFER TO [facility] PT TAKEN TO ANTE ROOM TO [facility] VIA WHEELCHAIR ALL BELONGING TAKEN WITH PT.PT IS AOX4 ON ROOM AIR , NO S/S OF DISTRESS OR SOB AND NO INCIDENT DURING TIME OF TRANSFER
[2020-05-27 22:00] VITALS: BP 126/75
[2020-05-27] MEDS: FLUTICASONE PROP NASAL SPR 0.05 % (50MCG) 16GM EACHNOSTRI SCH (22:00)
[2020-05-27] MEDS: ATORVASTATIN 20 MG TAB PO SCH (22:48)
[2020-05-28] VITALS (8 sets, daily range): BP systolic 104–130; BP diastolic 49–93
--- NOTE | 2020-05-28 08:10 | NUR ---
Opening Shift Note Assumed care of patient, awake and alert.RR are even and unlabored. No S/S of distress/SOB or pain. Instructed on POC and to call for assist PRN, will continue to monitor for changes Q1hr and PRN.
[2020-05-28] MEDS ORDERED: FUROSEMIDE 40 MG/4 ML VIAL IV SCH (10:00)
[2020-05-28] MEDS: ASCORBIC ACID 1,000 MG TAB PO SCH (10:00)
[2020-05-28] MEDS: FLUTICASONE PROP NASAL SPR 0.05 % (50MCG) 16GM EACHNOSTRI SCH ×2 (10:00→22:00)
[2020-05-28] MEDS ORDERED: POTASSIUM CHL 10 Meq TABLET PO SCH (10:00)
--- NOTE | 2020-05-28 10:01 | NUR ---
Wound care nurse at bedside. Addendum: 05/28/20 at 1002 by Shasha Rivera RN *disregard note. wrong patient.
--- NOTE | 2020-05-28 11:00 | NUR ---
Dr. Cleaning at bedside updating patient on POC
[2020-05-28] MEDS: cefTRIAXone 1GM/50ML D5W 50 ML IV SCH (11:09)
[2020-05-28] MEDS: PANTOPRAZOLE 40 MG TAB PO SCH (11:12)
[2020-05-28] MEDS: CHOLECALCIFEROL (VITD3) 1,000UNIT=25mCg TAB PO SCH (11:12)
[2020-05-28] MEDS: ASPirin 81 mg TAB PO SCH (11:12)
[2020-05-28] MEDS: AZITHROMYCIN 500MG/ 250ML 250 ML IV SCH (11:12)
[2020-05-28] MEDS: guaiFENesin-DM 100/10mg/5ml SYR PO PRN ×2 (13:54→19:02)
[2020-05-28] MEDS ORDERED: ENOXAPARIN SOD 40 MG/0.4 ML SYRINGE SC ONE (14:45)
--- NOTE | 2020-05-28 15:30 | NUR ---
PT REQUESTED THAT P.T. EVALUATION BE DONE TOMORROW.
[2020-05-28] MEDS: DOCUSATE SOD 100 MG CAP PO PRN (17:00)
[2020-05-28] MEDS: IPRATROPIUM BROM 0.5 MG/2.5ML INH SOL NEB SCH ×2 (18:18→23:05)
[2020-05-28] MEDS: ALBUTEROL SULF 2.5 MG/0.5ML(0.5%) NEB SOLN NEB SCH ×2 (18:18→23:05)
[2020-05-28] MEDS: BUDESONIDE (INHALATION) 0.5 MG/2 ML NEB NEB SCH (18:19)
--- NOTE | 2020-05-28 19:25 | NUR ---
closing note Patient is comfortable resting in bed. No s/s of distress/sob noted/stated. Bed at lowest locked position and call light within reach. Care endorsed to NOC RN.
--- NOTE | 2020-05-28 19:35 | NUR ---
Opening Shift Note Assumed care of patient, awake and alert. RR are even and unlabored. No S/S of distress/SOB or pain. HOB at 45 degrees and bed locked in lowest position, and call light within reach. Instructed on POC and to call for assist PRN, will continue to monitor for changes Q1hr and PRN.
--- NOTE | 2020-05-28 20:54 | NUR ---
IV removal due to leakage IV DC'd with clean sterile technique, catheter fully intact. Pressure dressing applied to site. Patient tolerated well.
--- NOTE | 2020-05-28 20:55 | NUR ---
IV insertion IV access obtained, via clean sterile technique by inserting 22 gauge catheter at left antecubital after 2 attempts. IV secured properly. No trauma to site. Patient tolerated procedure well.
[2020-05-28] MEDS: ATORVASTATIN 20 MG TAB PO SCH (22:13)
[2020-05-29] MEDS: ALBUTEROL SULF 2.5 MG/0.5ML(0.5%) NEB SOLN NEB SCH ×6 (02:12→22:21)
[2020-05-29] MEDS: IPRATROPIUM BROM 0.5 MG/2.5ML INH SOL NEB SCH ×6 (02:12→22:21)
[2020-05-29 05:00] VITALS: BP 122/71
--- NOTE | 2020-05-29 07:00 | NUR ---
Endorsed care to Shahla BLACK.
[2020-05-29] MEDS: BUDESONIDE (INHALATION) 0.5 MG/2 ML NEB NEB SCH ×2 (07:10→18:56)
--- NOTE | 2020-05-29 07:20 | NUR ---
Opening Shift Note: Assumed care of patient, awake and alert. No S/S of distress/SOB or pain. Bed in lowest locked position, side rails up x 2, call light within reach. Patient instructed on POC and to call for assist PRN, will continue to monitor for changes Q1hr and PRN.
[2020-05-29 09:00] VITALS: BP 123/74
[2020-05-29] MEDS: cefTRIAXone 1GM/50ML D5W 50 ML IV SCH (09:28)
[2020-05-29] MEDS: CHOLECALCIFEROL (VITD3) 1,000UNIT=25mCg TAB PO SCH (09:29)
[2020-05-29] MEDS: ENOXAPARIN SOD 40 MG/0.4 ML SYRINGE SC SCH (09:29)
[2020-05-29] MEDS: AZITHROMYCIN 500MG/ 250ML 250 ML IV SCH (09:29)
[2020-05-29] MEDS: PANTOPRAZOLE 40 MG TAB PO SCH (09:29)
[2020-05-29] MEDS: ASPirin 81 mg TAB PO SCH (09:29)
[2020-05-29] MEDS: FLUTICASONE PROP NASAL SPR 0.05 % (50MCG) 16GM EACHNOSTRI SCH ×2 (09:30→21:12)
[2020-05-29] MEDS: guaiFENesin-DM 100/10mg/5ml SYR PO PRN ×2 (10:18→20:16)
[2020-05-29 13:00] VITALS: BP 109/70
--- NOTE | 2020-05-29 14:58 | NUR ---
DR. GRAHAM: Dr. Davis at bedside. Discussed POC with patient.
[2020-05-29 17:24] VITALS: BP 119/80
--- NOTE | 2020-05-29 18:46 | NUR ---
CLOSING NOTE: Patient resting in bed. No S/S of distress at this time. Care endorsed to NOC RN.
--- NOTE | 2020-05-29 19:20 | NUR ---
Opening note Assumed care of patent, patient is resting in bed. On 8L Oxymizer, saturation 93%. No sob or distress noted at this time. Bed is locked in lowest position, side rails up x2. POC discussed with the patient who is Romansh speaking. All questions answered. Call light is within reach, will continue to monitor q1hr and prn.
[2020-05-29] MEDS: ATORVASTATIN 20 MG TAB PO SCH (21:12)
[2020-05-29 22:00] VITALS: BP 131/81
[2020-05-30] MEDS: guaiFENesin-DM 100/10mg/5ml SYR PO PRN ×2 (01:39→17:17)
--- NOTE | 2020-05-30 01:46 | NUR ---
Patient rounding Patient states he wants more cough medicine, to help ease his throat. Medicated per md orders. Patient still on 8L Oxymizer, saturation at 97%. No sob or distress noted. Call light within reach, will continue to monitor.
[2020-05-30] MEDS: ALBUTEROL SULF 2.5 MG/0.5ML(0.5%) NEB SOLN NEB SCH ×6 (02:33→22:38)
[2020-05-30] MEDS: IPRATROPIUM BROM 0.5 MG/2.5ML INH SOL NEB SCH ×6 (02:33→22:38)
[2020-05-30] MEDS: DOCUSATE SOD 100 MG CAP PO PRN ×2 (05:48→15:49)
[2020-05-30 06:00] VITALS: BP 109/65
[2020-05-30 06:19] LABS: Basophils # (auto) 0 10 ^3/uL (0-0.2); Basophils % (auto) 0.7 % (0.0-2.0); Eosinophils # (auto) 0.3 10 ^3/uL (0-0.8); Eosinophils % (auto) 5.2 % (0.0-7.0); Hemoglobin 14.9 g/dL (13.5-17.5); Lymphocytes # (auto) 1.4 10 ^3/uL (0.4-5.4); Lymphocytes % (auto) 20.9 % (10.0-50.0); Mean Corpuscular Hemoglobin 31.9 pg (28.0-32.0); Mean Corpuscular Hgb Conc. 33.9 g/dL (32.0-36.0); Mean Corpuscular Volume 94.1 fL (80.0-100.0); Monocytes # (auto) 0.8 10 ^3/uL (0-1.3); Neutrophils % (auto) 61.2 % (37.0-80.0); Nucleated Red Blood Cells % 0.1 %; Platelet Count (auto) 249 10^3/uL (140-450); Red Blood Cells 4.68 10^6/uL (4.5-5.90); Red Cell Distribution Width 14.9 % (11.8-14.3); White Blood Cell 6.6 10^3/uL (4.4-10.8)
--- NOTE | 2020-05-30 06:41 | NUR ---
Oxygen Patient is on 6L Oxymizer, saturation at 97% No sob or distress noted. Will continue to monitor.
[2020-05-30 06:44] LABS: Potassium 4.1 mmol/L (3.5-5.1)
[2020-05-30 06:50] LABS: Calcium 8.7 mg/dL (8.5-10.1)
--- NOTE | 2020-05-30 06:59 | NUR ---
Closing note Endorsed care to day shift RN no sob or distress noted.
--- NOTE | 2020-05-30 07:09 | NUR ---
Opening Shift Note: Assumed care of patient. Patient asleep at this time. No S/S of distress/SOB or pain. Bed in lowest locked position, side rails up x 2, call light within reach. Patient on 6 LPM NC at this time. Patient will be instructed on POC and to call for assistance PRN, will continue to monitor for changes Q1hr and PRN.
[2020-05-30 08:00] VITALS: BP 142/62
[2020-05-30] MEDS: cefTRIAXone 1GM/50ML D5W 50 ML IV SCH (08:56)
[2020-05-30] MEDS: FLUTICASONE PROP NASAL SPR 0.05 % (50MCG) 16GM EACHNOSTRI SCH ×2 (10:00→22:00)
[2020-05-30] MEDS: BUDESONIDE (INHALATION) 0.5 MG/2 ML NEB NEB SCH ×2 (10:03→18:13)
[2020-05-30] MEDS: AZITHROMYCIN 500MG/ 250ML 250 ML IV SCH (10:12)
[2020-05-30] MEDS: ASPirin 81 mg TAB PO SCH (10:12)
[2020-05-30] MEDS: CHOLECALCIFEROL (VITD3) 1,000UNIT=25mCg TAB PO SCH (10:13)
[2020-05-30] MEDS: ENOXAPARIN SOD 40 MG/0.4 ML SYRINGE SC SCH (10:13)
[2020-05-30] MEDS: PANTOPRAZOLE 40 MG TAB PO SCH (10:13)
[2020-05-30 12:00] VITALS: BP 136/77
--- NOTE | 2020-05-30 13:17 | NUR ---
Nutrition Followup Notes Pt wt is 83.9 kg Pt was awake with no relatives at bedside when rounded this morning. Pt is with a CCHO 60g diet, appetite is good aeb ave 75% PO intake per RN doc. Pt still with an Oxymizer to aid SOB. Pt with no distress. Will continue to monitor PO status, skin status, pertinent labs and weight trends. Will f/u in 3-5 days. Est energy needs 1585-8744 kcal (23-25 kcal/kg BW 83.915kg) Est protein needs 67-84g (0.8-1g/kg BW 83.915kg) Will reassess prn. LABS: Gluc 116 H, Alb 2.7 L GI: Pt with no BM today per RN doc BS: 19 low risk. Refer to wound assessment report for full details. PES: Overweight r/t caloric intake in excess of needs aeb pt with a BMI of 29.0 kg/m2 Comments 1) Continue to monitor po intake, labs, skin 2) refer pt to [facility] on DC 3) Continue current plan of care
[2020-05-30 16:55] VITALS: BP 135/79
--- NOTE | 2020-05-30 18:50 | NUR ---
CLOSING NOTE: Patient resting in bed. No S/S of distress. Care endorsed.
--- NOTE | 2020-05-30 19:25 | NUR ---
Opening Shift Note Assumed care of patient, awake and alert. RR are even and unlabored. No S/S of distress/SOB or pain. HOB at 40 degrees and bed locked in lowest position, and call light within reach. Instructed on POC and to call for assist PRN, will continue to monitor for changes Q1hr and PRN.
[2020-05-30 20:00] VITALS: BP 144/66
[2020-05-30 21:00] VITALS: BP 108/62
[2020-05-30] MEDS: ATORVASTATIN 20 MG TAB PO SCH (22:14)
[2020-05-31] MEDS: IPRATROPIUM BROM 0.5 MG/2.5ML INH SOL NEB SCH ×6 (02:29→22:34)
[2020-05-31] MEDS: ALBUTEROL SULF 2.5 MG/0.5ML(0.5%) NEB SOLN NEB SCH ×6 (02:29→22:34)
[2020-05-31 05:00] VITALS: BP_SYST 112; BP_SYST 123; BP_DIAS 57; BP_DIAS 82
[2020-05-31 06:29] LABS: Basophils # (auto) 0 10 ^3/uL (0-0.2); Basophils % (auto) 0.7 % (0.0-2.0); Eosinophils # (auto) 0.4 10 ^3/uL (0-0.8); Eosinophils % (auto) 7.1 % (0.0-7.0); Hematocrit 41.7 % (41.0-53.0); Hemoglobin 14.1 g/dL (13.5-17.5); Lymphocytes # (auto) 1.1 10 ^3/uL (0.4-5.4); Lymphocytes % (auto) 19.1 % (10.0-50.0); Mean Corpuscular Hemoglobin 32.1 pg (28.0-32.0); Mean Corpuscular Hgb Conc. 33.8 g/dL (32.0-36.0); Mean Corpuscular Volume 94.8 fL (80.0-100.0); Monocytes # (auto) 0.8 10 ^3/uL (0-1.3); Monocytes % (auto) 13.7 % (0.0-12.0); Neutrophils # (auto) 3.5 10 ^3/uL (1.6-8.6); Neutrophils % (auto) 59.4 % (37.0-80.0); Nucleated Red Blood Cells % 0.1 %; Platelet Count (auto) 238 10^3/uL (140-450); Red Cell Distribution Width 14.9 % (11.8-14.3); White Blood Cell 5.9 10^3/uL (4.4-10.8)
[2020-05-31 06:42] LABS: Potassium 3.8 mmol/L (3.5-5.1)
[2020-05-31 06:47] LABS: BUN/Creatinine Ratio 10.3; Calcium 8.4 mg/dL (8.5-10.1)
--- NOTE | 2020-05-31 07:05 | NUR ---
Care Endorsed to Urszula BLACK.
--- NOTE | 2020-05-31 08:00 | NUR ---
Received pt resting in bed, call light with in reach, pt's o2 at 4 lit via oxymizer, will continue to monitor pt.
[2020-05-31 09:00] VITALS: BP 116/76
[2020-05-31] MEDS: FLUTICASONE PROP NASAL SPR 0.05 % (50MCG) 16GM EACHNOSTRI SCH ×2 (10:00→22:32)
[2020-05-31] MEDS: BUDESONIDE (INHALATION) 0.5 MG/2 ML NEB NEB SCH ×2 (10:33→22:34)
--- NOTE | 2020-05-31 10:45 | NUR ---
Dr. Cleaning at bed side to see pt, doctor discussed plan of care with pt, doctor wants pt to walk, doctor decreased O2 from 4 lit via oxymizer to 3 lit, orders received to titrate pt.
--- NOTE | 2020-05-31 10:50 | NUR ---
PT attempted to walk pt, pt's O2 sat dropped to 82% at 3lit via oxymized when sitting down on side of the bed, pt's O2 increased to 6lit via oxymizer, pt go out of bed and took a step, O2 dropped to 82% again at 6 lit, increased pt's o2 to 8 lit, pt assisted back in bed, RT at bed side, to give a breathing treatment.
[2020-05-31 10:56] VITALS: BP 116/76
[2020-05-31] MEDS: AZITHROMYCIN 500MG/ 250ML 250 ML IV SCH (11:33)
[2020-05-31] MEDS: cefTRIAXone 1GM/50ML D5W 50 ML IV SCH (11:33)
[2020-05-31] MEDS: ASPirin 81 mg TAB PO SCH (11:34)
[2020-05-31] MEDS: CHOLECALCIFEROL (VITD3) 1,000UNIT=25mCg TAB PO SCH (11:34)
[2020-05-31] MEDS: PANTOPRAZOLE 40 MG TAB PO SCH (11:34)
[2020-05-31] MEDS: ENOXAPARIN SOD 40 MG/0.4 ML SYRINGE SC SCH (11:34)
[2020-05-31] MEDS: guaiFENesin-DM 100/10mg/5ml SYR PO PRN (12:05)
[2020-05-31 13:00] VITALS: BP 115/69
[2020-05-31 17:00] VITALS: BP 112/77
[2020-05-31 21:29] VITALS: BP 144/84
[2020-05-31] MEDS: ATORVASTATIN 20 MG TAB PO SCH (22:32)
[2020-06-01] MEDS: ALBUTEROL SULF 2.5 MG/0.5ML(0.5%) NEB SOLN NEB SCH ×5 (02:22→18:39)
[2020-06-01] MEDS: IPRATROPIUM BROM 0.5 MG/2.5ML INH SOL NEB SCH ×5 (02:22→18:40)
[2020-06-01 04:40] VITALS: BP 135/82
[2020-06-01] MEDS: ACETYLCYSTEINE 10 %(100MG/ML) SOL 4ML NEB SCH ×2 (05:54→14:20)
[2020-06-01 09:00] VITALS: BP 132/78
[2020-06-01] MEDS: FLUTICASONE PROP NASAL SPR 0.05 % (50MCG) 16GM EACHNOSTRI SCH (10:00)
[2020-06-01] MEDS: CHOLECALCIFEROL (VITD3) 1,000UNIT=25mCg TAB PO SCH (10:16)
[2020-06-01] MEDS: ASPirin 81 mg TAB PO SCH (10:16)
[2020-06-01] MEDS: cefTRIAXone 1GM/50ML D5W 50 ML IV SCH (10:16)
[2020-06-01] MEDS: PANTOPRAZOLE 40 MG TAB PO SCH (10:16)
[2020-06-01] MEDS: AZITHROMYCIN 500MG/ 250ML 250 ML IV SCH (10:17)
[2020-06-01] MEDS: ENOXAPARIN SOD 40 MG/0.4 ML SYRINGE SC SCH (10:17)
[2020-06-01] MEDS: BUDESONIDE (INHALATION) 0.5 MG/2 ML NEB NEB SCH ×2 (10:53→18:39)
[2020-06-01 13:00] VITALS: BP 122/70
--- NOTE | 2020-06-01 15:32 | NUR ---
Report called in to [facility] and spoke to Shira boyd.
[2020-06-01 17:00] VITALS: BP 133/83
--- NOTE | 2020-06-01 17:14 | NUR ---
D/C Planning Regarding social service consult for SNF placement. Faxed clinical information to [facility] and [facility]. Per Gabrielle with [facility] [phone] patient has been accepted to room 304 bed 2 accepting MD, Dr. Alonzo. Transportation has been arranged with [facility] with a 17:30 corn picker via gurney and oxygen. Obtain authorization from [facility] for SNF [id number] and transportation [id number]. Informed SOFIA Adan.
[2020-06-01] MEDS: guaiFENesin-DM 100/10mg/5ml SYR PO PRN (17:45)
--- NOTE | 2020-06-01 18:07 | NUR ---
Discharge instructions given as ordered to patient, and after patient's consent Coco/caregiver over the phone. Address and phone number to [facility] provided to and she states she will call. Encourage to follow up with PMD and specialist as instructed. All questions and concerns addressed. Patient verbalized understanding. Medication reconciliation form completed and copy given to patient. Home medications held in Pharmacy returned to patient. IV removed with catheter intact, pressure dressing applied. Patient taken to ambulance via stretcher with all personal belongings, accompanied by [facility] staff. No distress noted at time of departure, portable oxygen at 5L oxymizer.
== END 2020-06-01 18:02 | DRG 193 ==
LOC: EDBD 12:52 → ER 12:52 → TELE-EAST 12:53 → TELE-WESTW 05-27 20:00 → WEST WING 05-31 08:03
PROVIDERS: ADMIT Hospitalist; ATTEND Internal Medicine
DX: J12.9 Viral pneumonia, unspecified (principal); J96.21 Acute and chronic respiratory failure with hypoxia; E43 Unspecified severe protein-calorie malnutrition; I50.42 Chronic combined systolic (congestive) and diastolic (congestive) heart failure; J44.1 Chronic obstructive pulmonary disease with (acute) exacerbation; E03.9 Hypothyroidism, unspecified; K21.9 Gastro-esophageal reflux disease without esophagitis; R73.03 Prediabetes; E78.5 Hyperlipidemia, unspecified; M10.9 Gout, unspecified; Z20.828 Contact with and (suspected) exposure to other viral communicable diseases; K76.0 Fatty (change of) liver, not elsewhere classified; Z79.82 Long term (current) use of aspirin; Z86.19 Personal history of other infectious and parasitic diseases; Z79.899 Other long term (current) drug therapy; J84.17 Other interstitial pulmonary diseases with fibrosis in diseases classified elsewhere
CPT/HCPCS: 36415; 36600; 71045; 71250; 80048; 80053; 81001; 82805; 83605; 83735; 83880; 84100; 84439; 84443; 84481; 84484; 85025; 85379; 85610; 85730; 87040; 87070; 87081; 87205; 87426; 93005; 93970; 94640; 94668; 96365; 96368; 97110; 97530; G0378; J0696; J2405; J3490

== ENCOUNTER 2025-06-08 06:32 | Outpatient (CLI) | payer MEDICARE ==
[~2025-06-08 06:32] MED LIST changes: -AMOX500T86 PO; -CHOL1000 PO; +CHOL1TAB30 PO; -FUR20T PO; +FURO20TA4 PO; -LORA-154 PO; +LORA-483 PO; +OMEP20TA85 PO; -POTA-167 PO; +POTA-211 PO
[2025-06-08 07:35] LABS: Anion Gap 10 (5-15); BUN/Creatinine Ratio 11.2 (10.0-20.0); Blood Urea Nitrogen 11 mg/dL (9-23); Calcium 9.1 mg/dL (8.7-10.4); Carbon Dioxide 25 mmol/L (20-31); Potassium 4.3 mmol/L (3.5-5.1); Sodium 142 mmol/L (136-145); Total Protein 6.8 g/dL (5.7-8.2)
[2025-06-08 07:36] LABS: Albumin 4.2 g/dL (3.2-4.8)
[2025-06-08 07:37] LABS: Bilirubin, Total 0.9 mg/dL (0.2-1.0); Creatine Kinase IFCC 100 U/L (46-171)
[2025-06-08 07:38] LABS: Alkaline Phosphatase 149 U/L (46-116); Chloride 107 mmol/L (98-107); Glucose 108 mg/dL (74-106)
[2025-06-08 07:39] LABS: Alanine Aminotransferase 58 U/L (7-40)
== END 2025-06-08 17:00 | disposition home or self-care (01) ==
LOC: LAB 06:32
PROVIDERS: ATTEND Internal Medicine
DX: E11.9 Type 2 diabetes mellitus without complications (principal); E78.5 Hyperlipidemia, unspecified
CPT/HCPCS: 36415; 80053; 82550